=== PATIENT | female | born 1955 | race Caucasian/White ===

== ENCOUNTER 2018-03-12 15:00 | Inpatient (IN) | payer MEDICARE, MEDICAID ==
[~2018-03-12] VITALS: Ht 165.1 cm; Wt 80.3 kg
[2018-05-15] MEDS ORDERED: TOPI50TA PO (14:51)
[2018-05-15] MEDS ORDERED: GABA600T13 PO (14:51)
[2018-05-15] MEDS ORDERED: MELO-102 PO (14:51)
[2018-05-15] MEDS ORDERED: HYDR-4353 PO (14:51)
[2018-05-15] MEDS ORDERED: TRAZ-219 PO (14:51)
[2018-05-15] MEDS ORDERED: MONT10TA24 PO (14:51)
[2018-05-15] MEDS ORDERED: FENO134C PO (14:51)
[2018-05-15] MEDS ORDERED: CLON-527 PO (14:51)
[2018-05-15] MEDS ORDERED: ALBU18HF2 INH (14:51)
[2018-05-15] MEDS ORDERED: EST1T PO (14:51)
[2018-05-15] MEDS ORDERED: LEVO50TA8 PO (14:51)
[2018-05-15] MEDS ORDERED: BIFI4CAP PO (14:51)
[2018-05-15] MEDS ORDERED: BUPR300T53 PO (14:51)
[2018-05-15] MEDS ORDERED: ROSU10TA PO (14:51)
[2018-05-15 15:08] LABS: BASOPHILS % (AUTO) 0.5 % (0-1); EOSINOPHILS # (AUTO) 0.1 X10'3 (0-0.9); EOSINOPHILS % (AUTO) 2.4 % (0-6); LYMPHOCYTES # (AUTO) 0.5 X10'3 (1.1-4.8); LYMPHOCYTES % (AUTO) 8.8 % (21-51); MEAN CORPUSCULAR HGB CONC 32.4 % (33.0-36.5); MEAN CORPUSCULAR VOLUME 89.5 FL (78-98); MEAN PLATELET VOLUME 8.9 FL (7.4-10.4); MONOCYTES # (AUTO) 0.5 X10'3 (0-0.9); MONOCYTES % (AUTO) 8.9 % (2-12); NEUTROPHILS # (AUTO) 4.7 X10'3 (1.8-7.7); NEUTROPHILS % (AUTO) 79.4 % (42-75); PRE OP HEMATOCRIT 37.8 % (35.0-45.0); PRE OP HEMOGLOBIN 12.2 g/dL (12.0-16.0); PRE OP PLATELET COUNT 239 X10'3 (140-440); RED BLOOD COUNT 4.22 X10'6 (4.20-5.60); RED CELL DISTRIBUTION WIDTH 13.1 % (11.5-14.5)
[2018-05-15 15:32] LABS: PRE OP PROTIME 10.5 SECONDS (9.0-12.0)
[2018-05-15 15:43] LABS: ALBUMIN 3.5 G/DL (3.4-5.0); ALBUMIN/GLOBULIN RATIO 0.8 (1.1-1.5); ALKALINE PHOSPHATASE 68 IU/L (46-116); BLOOD UREA NITROGEN 15 MG/DL (7-18); BUN/CREATININE RATIO 15.5 (6.6-38.0); CALCIUM 9.1 MG/DL (8.5-10.1); CHLORIDE 104 MMOL/L (99-107); CREATININE 0.97 MG/DL (0.40-0.90); PRE OP ALT 21 U/L (30-65); PRE OP ANION GAP 11 (8-16); PRE OP AST 16 U/L (10-37); PRE OP BILIRUB, TOTAL 0.3 MG/DL (0.0-1.0); PRE OP GLUCOSE 95 MG/DL (70-104); PRE OP POTASSIUM 4.3 MMOL/L (3.4-5.1); PRE OP SODIUM 139 MMOL/L (135-145); TOTAL PROTEIN 7.7 G/DL (6.4-8.2); eGFR 58 ML/MIN
[2018-05-21] VITALS (26 sets, daily range): BP systolic 85–111; BP diastolic 46–76
[2018-05-21] MEDS ORDERED: ringers solution, lacted 1,000 ML IV SCH ×2 (05:00→13:21)
[2018-05-21] MEDS ORDERED: famotidine 20mg tablet PO ONE (05:30)
[2018-05-21] MEDS ORDERED: VANCOMYCIN INJ 1000 MG in NORMAL SALINE 250ml IV.SOLN IV ONE (05:30)
[2018-05-21] MEDS ORDERED: cefazolin/dext.iso 2gm/100 ML IV ONE (05:30)
[2018-05-21] MEDS ORDERED: tranexamic acid inj. 800 MG in normal saline 100ml IV soln 100 ML IV ONE ×2 (05:30→08:30)
[2018-05-21] MEDS ORDERED: ipratropium/albuterol 3ml nebule NEB ONE (06:40)
[2018-05-21] MEDS ORDERED: ROPIVAcaine inj 200 MG in normal saline 100ml IV soln 60 ML IU ONE (07:59)
[2018-05-21] MEDS ORDERED: ceFAZolin 1000mg inj ONE (08:03)
[2018-05-21] MEDS ORDERED: tetracaine 1% (10mg/ml) pres. free inj. ONE (08:19)
[2018-05-21] MEDS ORDERED: BUPIVAcaine/PF 7.5mg/ml (0.75%) 10ml vial ONE (08:19)
[2018-05-21] MEDS ORDERED: MIDAZolam 5mg/5ml vial ONE (08:25)
[2018-05-21] MEDS ORDERED: fentaNYL/PF 50MCG/1 ML 2ML syringe ONE (08:25)
[2018-05-21] MEDS ORDERED: morphine /PF 1mg/ml 10ml inj. ONE (08:25)
[2018-05-21] MEDS ORDERED: aminocaproic acid 250 MG/1 ML inj. ONE (09:15)
[2018-05-21] MEDS ORDERED: ePHEDrine 50MG/ML INJ. ONE (09:15)
[2018-05-21] MEDS ORDERED: diphenhydrAMINE 50 mg/ml inj ONE (09:15)
[2018-05-21] MEDS ORDERED: LIDOcaine 1%/PF 5ML 10 MG/ML VIAL ONE (09:35)
[2018-05-21] MEDS ORDERED: propofol inj 20 ML IV ONE (09:35)
[2018-05-21] MEDS ORDERED: dexamethasone sod phosphate 4mg/ml inj. ONE (10:24)
[2018-05-21] MEDS ORDERED: non-formulary drug (Albuterol Sulfate (Ventolin Hfa) 2 PUFFS) INH SCH (12:20)
[2018-05-21] MEDS ORDERED: magnesium hydroxide 30ml (MOM) UD suspension PO PRN (12:20)
[2018-05-21] MEDS ORDERED: HYDROmorphone inj. 0.5 MG/0.5 ML DISP.SYRIN IV PRN (12:20)
[2018-05-21] MEDS ORDERED: diphenhydrAMINE 25mg capsule PO PRN ×2 (12:20)
[2018-05-21] MEDS ORDERED: oxyCODONE IR 5mg (immed. release) tablet PO PRN (12:20)
[2018-05-21] MEDS ORDERED: ondansetron/PF 4mg/2ml inj IV PRN ×3 (12:20→13:25)
[2018-05-21] MEDS ORDERED: HYDROmorphone 1 mg/ml syringe IV PRN (12:20)
[2018-05-21] MEDS ORDERED: acetaminophen 325mg tablet PO PRN (12:20)
[2018-05-21] MEDS ORDERED: bisacodyl 10mg suppository rectal RC PRN (12:20)
[2018-05-21] MEDS ORDERED: gabapentin 300mg capsule PO SCH (13:00)
--- NOTE | 2018-05-21 13:00 | NUR ---
Received from OR via BED, accompanied by Anesthesiologist COURTNEY and report given by Anesthesiolgist. PT DROWSY, OXYGENATING WELL ON 2 LPM O2 VIA NC, NO RESP DISTRESS NOTED. NO C.O NAUSEA OR PAIN. PT HAD SAB WITH NARCOTICS, ADDUCTOR CANAL BLOCK CATHETER PLACED WELL. NO MOVEMENT OR SENSATION FROM UMBILICUS DOWN. PEDAL PULSES PALPABLE BILAT. TANESHA DSG TO R KNEE, KNEE WRAP ON WITH POWDER PACK IN PLACE. FC PATENT, SCDS ON. VSS, SLIGHT HYPOTENSION. WILL MONITOR IN PACU UNTIL WNL.
[2018-05-21] MEDS ORDERED: ROPIVACAINE HCL/PF PAIN PUMP 400 ML IJ SCH (13:16)
[2018-05-21] MEDS ORDERED: morphine 4 MG/ML inj SYRINge IV PRN ×2 (13:25)
[2018-05-21] MEDS ORDERED: proCHLORperazine 10 MG/2 ml inj IV PRN (13:25)
[2018-05-21] MEDS ORDERED: meperidine/PF 25mg/ml syringe IV PRN ×3 (13:25)
[2018-05-21] MEDS ORDERED: diphenhydrAMINE 50 mg/ml inj IV PRN (13:25)
[2018-05-21] MEDS ORDERED: albuterol 2.5 MG/3 ML nebule NEB PRN (13:50)
[2018-05-21] MEDS ORDERED: ROPIVAcaine 0.5% (5mg/ml) 30ml vial ONE (14:16)
--- NOTE | 2018-05-21 15:45 | NUR ---
Report called to receiving nurse. Transferred via BED Belongings WITH PT, DENTURES AND 1 BAG OF CLOTHING. VSS. TOLERATING PO FLUIDS WELL. NO C/O PAIN. ON CUE ATTACHED TO R ADDUCTOR CANAL CATHETER, 8 ML/HR. TRANSFERRED TO ORTHO FLOOR IN STABLE CONDITION. Special Issues communicated to receiving nurse.
[2018-05-21] MEDS ORDERED: non-formulary drug (Gabapentin 1 TAB) PO SCH (16:00)
[2018-05-21] MEDS: gabapentin 300mg capsule PO SCH (17:02)
[2018-05-21] MEDS: ketorolac tromethamine 15mg/ml inj. IV SCH ×2 (17:02→21:28)
[2018-05-21] MEDS: ceFAZolin 1GM/D5W- ADD-VANTAGE 50 ML IV SCH (17:02)
[2018-05-21] MEDS: potassium cl 20mEq in 1/2 NS 1,000 ML IV SCH (17:03)
[2018-05-21] MEDS: acetaminophen 325mg tablet PO SCH ×2 (17:03→21:28)
--- NOTE | 2018-05-21 18:44 | NUR ---
Report rec'd from toñito Lopez.
[2018-05-21] MEDS ORDERED: vancomycin/NS 1 GM ADD-VANTAGE 250 ML IV SCH (20:00)
[2018-05-21] MEDS ORDERED: TRAZODONE HCL PO SCH (21:00)
[2018-05-21] MEDS ORDERED: non-formulary drug (Rosuvastatin Calcium* (Crestor*) 1 TAB) PO SCH (21:00)
[2018-05-21] MEDS: sennosides 8.6mg tablet PO SCH (21:00)
[2018-05-21] MEDS ORDERED: non-formulary drug (Fenofibrate,Micronized (Fenofibrate) 1 CAP) PO SCH (21:00)
[2018-05-21] MEDS ORDERED: TOPIRAMATE PO SCH (21:00)
[2018-05-21] MEDS: buPROPion SR 150mg tablet PO SCH (21:29)
[2018-05-21] MEDS: traZODone 50mg tablet PO SCH (21:29)
[2018-05-21] MEDS: atorvastatin 20mg tablet PO SCH (21:30)
[2018-05-21] MEDS: montelukast 10mg tablet PO SCH (21:30)
[2018-05-21] MEDS: fenofibrate 145mg tablet PO SCH (21:30)
[2018-05-21] MEDS: topiramate 25mg tablet PO SCH (21:30)
[2018-05-22] MEDS: ceFAZolin 1GM/D5W- ADD-VANTAGE 50 ML IV SCH (01:01)
[2018-05-22] MEDS: ketorolac tromethamine 15mg/ml inj. IV SCH ×2 (03:40→08:22)
[2018-05-22] MEDS: acetaminophen 325mg tablet PO SCH ×4 (03:41→21:58)
[2018-05-22] MEDS: gabapentin 300mg capsule PO SCH ×4 (03:43→15:46)
[2018-05-22] MEDS: potassium cl 20mEq in 1/2 NS 1,000 ML IV SCH ×4 (03:46→20:18)
[2018-05-22] MEDS: oxyCODONE IR 5mg (immed. release) tablet PO PRN ×4 (03:54→23:52)
[2018-05-22 06:00] VITALS: BP 108/59
--- NOTE | 2018-05-22 06:25 | NUR ---
received report from toñito kim
--- NOTE | 2018-05-22 06:41 | NUR ---
REPORT GIVEN TO YADIRA BAXTER.
[2018-05-22 07:25] LABS: BASOPHILS % (AUTO) 0.5 % (0-1); EOSINOPHILS % (AUTO) 0.3 % (0-6); HEMATOCRIT 32.8 % (35.0-45.0); HEMOGLOBIN 10.9 g/dl (12.0-16.0); LYMPHOCYTES # (AUTO) 0.5 X10'3 (1.1-4.8); MEAN CORPUSCULAR HEMOGLOBIN 29.7 PG (27.0-31.0); MEAN CORPUSCULAR HGB CONC 33.2 % (33.0-36.5); MEAN CORPUSCULAR VOLUME 89.4 FL (78-98); MEAN PLATELET VOLUME 8.6 FL (7.4-10.4); MONOCYTES # (AUTO) 0.5 X10'3 (0-0.9); MONOCYTES % (AUTO) 11.8 % (2-12); NEUTROPHILS # (AUTO) 3.6 X10'3 (1.8-7.7); NEUTROPHILS % (AUTO) 77.4 % (42-75); PLATELET COUNT 147 X10'3 (140-440); RED BLOOD COUNT 3.67 X10'6 (4.20-5.60); RED CELL DISTRIBUTION WIDTH 12.7 % (11.5-14.5); WHITE BLOOD COUNT 4.6 X10'3 (4.5-11.0)
[2018-05-22 07:45] LABS: ANION GAP 12 (8-16); CHLORIDE 106 MMOL/L (99-107); POTASSIUM 3.9 MMOL/L (3.5-5.1); SODIUM 137 MMOL/L (135-145); TOTAL CARBON DIOXIDE 19.4 MMOL/L (24-32)
[2018-05-22] MEDS ORDERED: non-formulary drug (Meloxicam 1 TAB) PO SCH (08:00)
[2018-05-22] MEDS ORDERED: non-formulary drug (Levothyroxine Sodium 50 MCG) PO SCH (08:00)
[2018-05-22] MEDS ORDERED: BIFIDOBACTERIUM INFANTIS 4 MG PO SCH (08:00)
[2018-05-22] MEDS ORDERED: BUPROPION HCL 300 MG PO SCH (08:00)
[2018-05-22] MEDS: levoTHYROXINE 25mcg tablet PO SCH (08:19)
[2018-05-22] MEDS: aspirin 325mg tablet PO SCH (08:20)
[2018-05-22] MEDS: clonazePAM 1mg tablet PO SCH (08:20)
[2018-05-22] MEDS: estradiol 1mg tablet PO SCH (08:21)
[2018-05-22] MEDS: buPROPion SR 150mg tablet PO SCH ×2 (08:21→21:07)
[2018-05-22 10:00] VITALS: BP 83/38
[2018-05-22 14:00] VITALS: BP 91/51
--- NOTE | 2018-05-22 15:11 | NUR ---
Patient is s/p total arthroplasty of right knee. Has surgical wound to right knee. Good appetite and eating 100% of regular diet. Pt given written high protein education handout r/t wound heal s/p surgery. Addendum: 05/22/18 at [address] Amended: Links added.
[2018-05-22 18:00] VITALS: BP 163/55
--- NOTE | 2018-05-22 18:23 | NUR ---
gave report to toñito martinez
[2018-05-22] MEDS: sennosides 8.6mg tablet PO SCH (21:00)
[2018-05-22] MEDS: celeCOXIB 100mg capsule PO SCH (21:07)
[2018-05-22] MEDS: atorvastatin 20mg tablet PO SCH (21:57)
[2018-05-22] MEDS: montelukast 10mg tablet PO SCH (21:58)
[2018-05-22] MEDS: fenofibrate 145mg tablet PO SCH (21:58)
[2018-05-22] MEDS: traZODone 50mg tablet PO SCH (21:59)
[2018-05-22] MEDS: topiramate 25mg tablet PO SCH (21:59)
[2018-05-22 22:00] VITALS: BP 112/58
[2018-05-23] MEDS: gabapentin 300mg capsule PO SCH ×3 (00:41→16:15)
[2018-05-23] MEDS: acetaminophen 325mg tablet PO SCH ×2 (02:00→09:49)
[2018-05-23] MEDS: potassium cl 20mEq in 1/2 NS 1,000 ML IV SCH (04:18)
[2018-05-23 06:00] VITALS: BP 134/54
[2018-05-23 06:04] LABS: BASOPHILS % (AUTO) 0.1 % (0-1); EOSINOPHILS % (AUTO) 0.1 % (0-6); HEMATOCRIT 27.7 % (35.0-45.0); HEMOGLOBIN 9.3 g/dl (12.0-16.0); LYMPHOCYTES # (AUTO) 0.3 X10'3 (1.1-4.8); LYMPHOCYTES % (AUTO) 4.1 % (21-51); MEAN CORPUSCULAR HEMOGLOBIN 29.2 PG (27.0-31.0); MEAN CORPUSCULAR HGB CONC 33.4 % (33.0-36.5); MEAN CORPUSCULAR VOLUME 87.3 FL (78-98); MONOCYTES # (AUTO) 0.7 X10'3 (0-0.9); MONOCYTES % (AUTO) 10.4 % (2-12); NEUTROPHILS # (AUTO) 5.6 X10'3 (1.8-7.7); NEUTROPHILS % (AUTO) 85.3 % (42-75); PLATELET COUNT 153 X10'3 (140-440); RED BLOOD COUNT 3.17 X10'6 (4.20-5.60); RED CELL DISTRIBUTION WIDTH 12.7 % (11.5-14.5); WHITE BLOOD COUNT 6.6 X10'3 (4.5-11.0)
--- NOTE | 2018-05-23 06:30 | NUR ---
I have received patient report from Gaby MAY
[2018-05-23] MEDS: levoTHYROXINE 25mcg tablet PO SCH (06:44)
[2018-05-23] MEDS: oxyCODONE IR 5mg (immed. release) tablet PO PRN (06:44)
[2018-05-23] MEDS ORDERED: naproxen 500mg tablet PO SCH (07:30)
--- NOTE | 2018-05-23 08:00 | NUR ---
Patient desaturating after physical therpay and pain medications and very lethargic, Yun Crowe ordered to narcan patient. Patient then became more arousasble and 02 sats went up, they intially went down to 89 and put on 4LNC.
[2018-05-23] MEDS: naloxone 0.4 mg/ml inj IV STA ×2 (08:36→08:47)
[2018-05-23] MEDS ORDERED: naloxone 0.4 mg/ml inj ONE (08:41)
[2018-05-23] MEDS ORDERED: ASPI-1 PO (08:53)
[2018-05-23] MEDS: clonazePAM 1mg tablet PO SCH (09:49)
[2018-05-23] MEDS: estradiol 1mg tablet PO SCH (09:50)
[2018-05-23] MEDS: celeCOXIB 100mg capsule PO SCH ×2 (09:50→19:10)
[2018-05-23] MEDS: buPROPion SR 150mg tablet PO SCH ×2 (09:50→19:10)
[2018-05-23] MEDS: aspirin 325mg tablet PO SCH (09:52)
[2018-05-23 10:00] VITALS: BP 147/69
[2018-05-23] MEDS ORDERED: acetaminophen 325mg tablet PO PRN (12:20)
[2018-05-23 18:00] VITALS: BP 123/59
--- NOTE | 2018-05-23 18:30 | NUR ---
I gave patient report to Kim MAY
--- NOTE | 2018-05-23 18:30 | NUR ---
Patient in room ORTHO 4024. I have received report from Pauline MAY and had the opportunity to ask questions and assume patient care.
[2018-05-23] MEDS: fenofibrate 145mg tablet PO SCH (21:03)
[2018-05-23] MEDS: montelukast 10mg tablet PO SCH (21:03)
[2018-05-23] MEDS: atorvastatin 20mg tablet PO SCH (21:03)
[2018-05-23] MEDS: sennosides 8.6mg tablet PO SCH (21:03)
[2018-05-23] MEDS: topiramate 25mg tablet PO SCH (21:03)
[2018-05-23] MEDS: traZODone 50mg tablet PO SCH (21:03)
[2018-05-23 22:00] VITALS: BP 120/64
[2018-05-24 06:00] VITALS: BP 127/67
--- NOTE | 2018-05-24 06:21 | NUR ---
Problems reprioritized. Patient report given, questions answered & plan of care reviewed with Pauline MAY.
--- NOTE | 2018-05-24 06:28 | NUR ---
I have received patient report from Kim MAY
[2018-05-24 06:38] LABS: BASOPHILS % (AUTO) 0.2 % (0-1); EOSINOPHILS % (AUTO) 0.3 % (0-6); HEMATOCRIT 27.3 % (35.0-45.0); HEMOGLOBIN 8.9 g/dl (12.0-16.0); LYMPHOCYTES # (AUTO) 0.3 X10'3 (1.1-4.8); LYMPHOCYTES % (AUTO) 5.8 % (21-51); MEAN CORPUSCULAR HEMOGLOBIN 28.8 PG (27.0-31.0); MEAN CORPUSCULAR HGB CONC 32.8 % (33.0-36.5); MEAN CORPUSCULAR VOLUME 87.7 FL (78-98); MEAN PLATELET VOLUME 9.1 FL (7.4-10.4); MONOCYTES # (AUTO) 0.6 X10'3 (0-0.9); MONOCYTES % (AUTO) 9.7 % (2-12); NEUTROPHILS # (AUTO) 4.9 X10'3 (1.8-7.7); PLATELET COUNT 180 X10'3 (140-440); RED BLOOD COUNT 3.11 X10'6 (4.20-5.60); RED CELL DISTRIBUTION WIDTH 12.5 % (11.5-14.5); WHITE BLOOD COUNT 5.8 X10'3 (4.5-11.0)
[2018-05-24] MEDS: levoTHYROXINE 25mcg tablet PO SCH (08:09)
[2018-05-24] MEDS: gabapentin 300mg capsule PO SCH ×3 (08:09→16:40)
[2018-05-24] MEDS: buPROPion SR 150mg tablet PO SCH ×2 (08:10→20:30)
[2018-05-24] MEDS: clonazePAM 1mg tablet PO SCH (08:10)
[2018-05-24] MEDS: celeCOXIB 100mg capsule PO SCH ×2 (08:10→20:30)
[2018-05-24] MEDS: estradiol 1mg tablet PO SCH (08:10)
[2018-05-24] MEDS: aspirin 325mg tablet PO SCH (08:10)
[2018-05-24 10:00] VITALS: BP 121/61
--- NOTE | 2018-05-24 12:00 | NUR ---
I spoke with Dr. Driscoll regarding patient high blood pressure, he said that the blood pressure should come down when IV fluids are discontinued.
[2018-05-24 18:00] VITALS: BP 119/63
--- NOTE | 2018-05-24 18:13 | NUR ---
I GAVE PATIENT REPORT TO JESE MAY
--- NOTE | 2018-05-24 18:39 | NUR ---
Patient in room ORTHO 4014. I have received report from Pauline MAY and had the opportunity to ask questions and assume patient care.
[2018-05-24] MEDS: atorvastatin 20mg tablet PO SCH (20:30)
[2018-05-24] MEDS: traZODone 50mg tablet PO SCH (20:30)
[2018-05-24] MEDS: topiramate 25mg tablet PO SCH (20:31)
[2018-05-24] MEDS: sennosides 8.6mg tablet PO SCH (20:31)
[2018-05-24] MEDS: montelukast 10mg tablet PO SCH (20:31)
[2018-05-24] MEDS: fenofibrate 145mg tablet PO SCH (20:32)
[2018-05-24 22:00] VITALS: BP 117/63
[2018-05-25 06:00] VITALS: BP 104/58
--- NOTE | 2018-05-25 06:25 | NUR ---
Problems reprioritized. Patient report given, questions answered & plan of care reviewed with Margarette MAY.
--- NOTE | 2018-05-25 06:25 | NUR ---
Patient in room ORTHO 4014. I have received report from Shelia MAY and had the opportunity to ask questions and assume patient care.
[2018-05-25] MEDS: buPROPion SR 150mg tablet PO SCH (08:08)
[2018-05-25] MEDS: celeCOXIB 100mg capsule PO SCH (08:08)
[2018-05-25] MEDS: aspirin 325mg tablet PO SCH (08:08)
[2018-05-25] MEDS: gabapentin 300mg capsule PO SCH ×2 (08:08)
[2018-05-25] MEDS: clonazePAM 1mg tablet PO SCH (08:09)
[2018-05-25] MEDS: levoTHYROXINE 25mcg tablet PO SCH (08:09)
[2018-05-25] MEDS: estradiol 1mg tablet PO SCH (08:09)
[2018-05-25 10:00] VITALS: BP 100/51
--- NOTE | 2018-05-25 12:08 | NUR ---
Patient stable for discharge home today with son. All instructions given to patient and son. All belongings sent with patient. Patient will follow up with Dr. Graf.
== END 2018-05-25 12:13 | disposition home health service (06) | DRG 470 ==
LOC: PAS IN 05-21 05:54 → EDSTATUS 05-21 08:15 → ORTHO 4S 05-21 15:55
PROVIDERS: ADMIT Orthopaedic Surgery; ATTEND Orthopaedic Surgery
PROC: 8E0YXBF Computer Assisted Procedure of Lower Extremity, With Fluoroscopy (ICD-10-PCS; 2018-05-21)
PROC: 3E0T3BZ Introduction of Anesthetic Agent into Peripheral Nerves and Plexi, Percutaneous Approach (ICD-10-PCS; 2018-05-21)
PROC: 0SRC0J9 Replacement of Right Knee Joint with Synthetic Substitute, Cemented, Open Approach (ICD-10-PCS; principal; 2018-05-21 09:15)
DX: M17.0 Bilateral primary osteoarthritis of knee (principal); D62 Acute posthemorrhagic anemia; M25.561 Pain in right knee; J45.909 Unspecified asthma, uncomplicated; E03.9 Hypothyroidism, unspecified; F41.8 Other specified anxiety disorders; E78.5 Hyperlipidemia, unspecified
CPT/HCPCS: 36415; 80051; 80053; 84443; 85025; 85610; 85730; 87070; 93005; 94640; 94760; 97110; 97116; 97161; 97530; A4344; A6455; A7000; C1713; C1758; C1776; G0378; J0690; J1100; J1170; J1200; J1885; J2001; J2250; J2274; J2310; J2405; J2704; J2795; J3010; J3370; J3490; J7030; J7120; Q0163

== ENCOUNTER 2018-07-11 13:43 | Emergency (ER) | payer MEDICARE, MEDICAID ==
[~2018-07-11] VITALS: Ht 170.2 cm; Wt 80.0 kg
[~2018-07-11 13:43] MED LIST: ALBU18HF2 INH; ASPI-1 PO; BIFI4CAP PO; BUPR300T53 PO; CLON-527 PO; EST1T PO; FENO134C PO; GABA600T13 PO; HYDR-4353 PO; LEVO50TA8 PO; MELO-102 PO; MONT10TA24 PO; ROSU10TA PO; TOPI50TA PO; TRAZ-219 PO
[2018-07-11 13:55] VITALS: BP 119/67
[2018-07-11] MEDS ORDERED: CYCL-1 PO (16:08)
== END 2018-07-11 16:22 | disposition home or self-care (01) ==
LOC: ER 13:44
DX: M75.42 Impingement syndrome of left shoulder (principal); Z98.890 Other specified postprocedural states; Z79.82 Long term (current) use of aspirin; Z79.899 Other long term (current) drug therapy
CPT/HCPCS: 99283

== ENCOUNTER 2022-06-21 06:21 | Day surgery (SDC) | payer MEDICARE, MEDICAID ==
[~2022-06-21] VITALS: Ht 162.6 cm; Wt 80.1 kg
[2022-06-21] VITALS (15 sets, daily range): BP systolic 104–127; BP diastolic 57–76
[~2022-06-21 06:21] MED LIST changes: +CYCL-1 PO; -FENO134C PO; +FENO134C21 PO; +MONT-40 PO; -MONT10TA24 PO; -ROSU10TA PO; +ROSU10TA2 PO; -TRAZ-219 PO; +TRAZ-256 PO
[2022-06-21] MEDS ORDERED: diphenhydrAMINE 25mg capsule PO PRN (06:40)
[2022-06-21] MEDS ORDERED: LORazepam 0.5 MG tablet PO PRN (06:40)
[2022-06-21] MEDS ORDERED: normal saline 1,000 ML IV SCH (06:40)
[2022-06-21] MEDS ORDERED: nitroGLYCERIN 0.4mg SUBLingual tab SL PRN ×2 (06:40→11:10)
[2022-06-21] MEDS ORDERED: OMEP20CA16 PO (06:50)
[2022-06-21] MEDS ORDERED: BUSP10TA3 PO (06:50)
[2022-06-21 07:36] LABS: BASOPHILS % (AUTO) 0.6 % (0-1); EOSINOPHILS # (AUTO) 0.1 X10'3 (0-0.9); HEMATOCRIT 36.1 % (35.0-45.0); HEMOGLOBIN 11.6 g/dl (12.0-16.0); LYMPHOCYTES # (AUTO) 0.5 X10'3 (1.1-4.8); LYMPHOCYTES % (AUTO) 12.3 % (21-51); MEAN CORPUSCULAR HEMOGLOBIN 28.6 PG (27.0-31.0); MEAN CORPUSCULAR HGB CONC 32.2 g/dL (33.0-36.5); MEAN CORPUSCULAR VOLUME 88.9 FL (78-98); MONOCYTES # (AUTO) 0.5 X10'3 (0-0.9); MONOCYTES % (AUTO) 11.7 % (2-12); NEUTROPHILS # (AUTO) 2.9 X10'3 (1.8-7.7); NEUTROPHILS % (AUTO) 73.4 % (42-75); PLATELET COUNT 241 X10'3 (140-440); RED BLOOD COUNT 4.06 X10'6 (4.20-5.60); RED CELL DISTRIBUTION WIDTH 14.4 % (11.5-14.5)
[2022-06-21] MEDS ORDERED: fentaNYL/PF 50MCG/1 ML 2ML syringe ONE (07:43)
[2022-06-21] MEDS ORDERED: iohexol 350MG/ML 100ml bottle IV ONE (07:44)
[2022-06-21] MEDS ORDERED: LIDOcaine 1% 30ml preserv. free vial ONE (07:44)
[2022-06-21] MEDS ORDERED: iohexol 350 MG/ML 50ML vial IV ONE (07:44)
[2022-06-21] MEDS ORDERED: midazolam 1 mg/ML 2ml injection ONE (07:44)
[2022-06-21 07:47] LABS: ALBUMIN 3.4 G/DL (3.4-5.0); ANION GAP 9 (8-16); BLOOD UREA NITROGEN 14 MG/DL (7-18); BUN/CREATININE RATIO 13.6 (6.6-38.0); CALCIUM 8.9 MG/DL (8.5-10.1); CHLORIDE 110 MMOL/L (99-107); CREATININE 1.03 MG/DL (0.40-0.90); GLUCOSE 103 MG/DL (70-104); SODIUM 143 MMOL/L (135-145); TOTAL CARBON DIOXIDE 24.3 MMOL/L (24-32); eGFR 53 ML/MIN
[2022-06-21 07:51] LABS: APTT 25 SECONDS (22-32)
[2022-06-21] MEDS ORDERED: HYDROcodone/acetaminophen 10/325mg tab PO PRN (11:10)
[2022-06-21] MEDS ORDERED: ondansetron/PF 4mg/2ml inj IV PRN (11:10)
[2022-06-21] MEDS ORDERED: HYDROcodone/acetaminophen 5mg/325mg tablet PO PRN (11:10)
[2022-06-21] MEDS ORDERED: proCHLORperazine 10 MG/2 ml inj IV PRN (11:10)
[2022-06-21] MEDS ORDERED: OXAZEpam 15mg capsule PO PRN (11:10)
== END 2022-06-21 16:00 | disposition home or self-care (01) ==
LOC: SSTAY O 06:21
PROVIDERS: ATTEND Internal Medicine Cardiovascular Disease
DX: R94.39 Abnormal result of other cardiovascular function study (principal); R07.89 Other chest pain; I25.10 Atherosclerotic heart disease of native coronary artery without angina pectoris; G62.9 Polyneuropathy, unspecified; G89.4 Chronic pain syndrome; F32.A Depression, unspecified; E78.5 Hyperlipidemia, unspecified; E03.9 Hypothyroidism, unspecified; J44.9 Chronic obstructive pulmonary disease, unspecified; M19.90 Unspecified osteoarthritis, unspecified site; F17.210 Nicotine dependence, cigarettes, uncomplicated; Z98.1 Arthrodesis status; Z96.651 Presence of right artificial knee joint; Z79.899 Other long term (current) drug therapy; Z98.890 Other specified postprocedural states; R91.8 Other nonspecific abnormal finding of lung field
CPT/HCPCS: 36415; 71046; 71250; 80048; 85025; 85610; 85730; 93458; 99152; C1760; C1769; J1644; J2250; J3010; J3490; J7030; Q0163; Q9967; 99153

== ENCOUNTER → 2022-11-30 | Outpatient (CLI) | payer MEDICARE, MEDICAID ==
[~2022-11-30] MED LIST changes: -ASPI-1 PO; -BIFI4CAP PO; +BUSP10TA3 PO; -CLON-527 PO; -CYCL-1 PO; +GADOTERATE MEGLUMINE 7.5 MMOL/15 ML VIAL IV ONE; -HYDR-4353 PO; -MELO-102 PO; -MONT-40 PO; +OMEP20CA16 PO
== END | disposition home or self-care (01) ==
LOC: RAD 12:44
PROVIDERS: ATTEND Surgery
DX: D38.1 Neoplasm of uncertain behavior of trachea, bronchus and lung (principal)
CPT/HCPCS: 70553; A9575